=== PATIENT | male | born 1980 | race Asian ===

== ENCOUNTER 2020-03-09 23:08 | Emergency (ER) | payer OTHER ==
[~2020-03-09] VITALS: Ht 170.2 cm; Wt 74.4 kg
[2020-03-09 23:20] VITALS: BP 173/83
--- NOTE | 2020-03-09 23:20 | NUR ---
39 Y/O MALE PRESENTS TO ER WITH C/O CHEST PAIN. 03/23. PT STATES HE ATE FRIED CHICKEN, AND 2 BEERS AROUND 6-7PM. 30 MINUTES AFTER MEAL HE BEGAN HAVING CHEST PAIN, SWEATING, AND VOMITTED 4-5X BACK TO BACK. HE ALSO C/O HEADACHE, NAUSEA, AND BILATERAL JAW PAIN. DENIES DIARRHEA, VISION CHANGES/OR SENSITIVITY TO LIGHT, AND SOB, COUGH, NUMBNESS, AND TINGLING OF BUE, INJURY/TRAUMA. A&OX4, BRADYCARDIC AT 38. SIDE RAIL X2, BED IN LOW POSITION, WILL CONTINUE TO MONITOR. NKDA DENIES PMH
[2020-03-09] MEDS ORDERED: ONDANSETRON 4 MG/2 ML VIAL IVP ONE (23:40)
[2020-03-09] MEDS ORDERED: NACL 0.9% 1,000 ML IV ONE (23:40)
[2020-03-09] MEDS ORDERED: ASPIRIN 325 MG TAB PO ONE (23:40)
[2020-03-09] MEDS ORDERED: MORPHINE SULFATE 4 MG/ML SYR IVP ONE (23:40)
[2020-03-09 23:47] LABS: BASOPHILS # (AUTO) 0.1 K/uL (0.00-0.22); BASOPHILS % (AUTO) 0.4 % (0.0-2.0); EOSINOPHILS # (AUTO) 0.1 K/uL (0-0.4); EOSINOPHILS % (AUTO) 0.5 % (0.0-4.0); HEMATOCRIT 41.7 % (36-52); HEMOGLOBIN 14.3 g/dL (12.0-18.0); LYMPHOCYTES # (AUTO) 1.8 K/uL (2.0-11.5); LYMPHOCYTES % (AUTO) 12.3 % (20.5-51.1); MEAN CORPUSCULAR HEMOGLOBIN 30 pg (27-31); MEAN CORPUSCULAR HGB CONC 34 g/dL (33-37); MEAN CORPUSCULAR VOLUME 88.2 fL (80-94); MONOCYTES # (AUTO) 0.4 K/uL (0.8-1.0); MONOCYTES % (AUTO) 2.6 % (1.7-9.3); NEUTROPHILS # (AUTO) 12.2 K/uL (1.8-7.7); NEUTROPHILS % (AUTO) 84.2 % (42.2-75.2); PLATELET COUNT (AUTO) 283 K/uL (140-450); RED BLOOD CELL COUNT(AUTO) 4.72 MIL/uL (4.20-6.10); RED CELL DISTRIBUTION WIDTH 12.4 % (11.6-13.7); WHITE BLOOD COUNT (AUTO) 14.4 K/uL (4.8-10.8)
[2020-03-10 00:02] LABS: ALBUMIN 4.7 g/dL (3.4-5.0); ANION GAP 13.1 (8-16); CARBON DIOXIDE 28.7 mmol/L (21-32); POTASSIUM 3.8 mmol/L (3.5-5.1); TOTAL BILIRUBIN 0.3 mg/dL (0.0-1.0)
[2020-03-10] MEDS ORDERED: INTUBATION KIT MC ONE (00:05)
--- NOTE | 2020-03-10 00:13 | NUR ---
SPOKE TO D[place]AS AT [facility], GAVE REPORT FOR PT.
--- NOTE | 2020-03-10 00:15 | NUR ---
CRITICAL LAB REPORTED FROM LABORATORY=TROP[facility] 0.200. CALLED [facility], SPOKE WITH SHAYY. NOTIFIED HER OF LAB VALUE TO PASS ON TO ER/ADMITTING DOCTOR.
[2020-03-10 00:26] VITALS: BP 132/94
--- NOTE | 2020-03-10 00:30 | NUR ---
Patient to be transferred to [facility]. Is being transferred due to HIGHER LEVEL OF CARE. Receiving facility has accepting physician and available space. ER physician has signed transfer form. Patient or responsible republican has agreed to transfer and signed form. Patient belongings inventoried and will be sent with patient. Copy of nursing notes, lab reports, EKG, Physicians Orders and X-rays to be sent with patient. Report called to DALLAS at receiving facility. [facility] ambulance service has been called for transfer.
--- NOTE | 2020-03-11 17:47 | NUR ---
LATE ENTRY -- CONFIRMED WITH RN HEPARIN END TIME OF 0055 03/10/20.
== END 2020-03-10 00:30 | disposition short-term general hospital (02) ==
LOC: MED 23:08
DX: I21.3 ST elevation (STEMI) myocardial infarction of unspecified site (principal); I49.8 Other specified cardiac arrhythmias
CPT/HCPCS: 36415; 71045; 80053; 83880; 84484; 85025; 93005; 96361; 96374; 96375; 96376; 99291; J1644; J2270; J2405; J7030; Q0092